=== PATIENT | male | born 1960 ===

== ENCOUNTER 2020-09-20 06:00 | Outpatient (RCR) | payer OTHER, SELFPAY | END 2020-10-15 23:59 | disposition home or self-care (01) | LOC: GPT 06:00 | PROVIDERS: Referring Provider Physician Assistant; Visit Provider Physician Assistant | DX: R53.1 Weakness (principal) | CPT/HCPCS: 97032; 97110; 97162; 97530 ==

== ENCOUNTER → 2022-07-18 12:57 | Outpatient (BNVA) | payer OTHER, SELFPAY | PROVIDERS: PCP Family Medicine; Visit Provider Family Medicine | DX: M25.461 Effusion, right knee (principal); M17.11 Unilateral primary osteoarthritis, right knee | CPT/HCPCS: 73562 ==